=== PATIENT | female | born 1955 | race Caucasian/White ===

== ENCOUNTER 2016-11-22 16:30 | Emergency (ER) | payer OTHER ==
--- NOTE | 2016-11-22 17:05 | ER Document Report ---
ED Medical Screen (RME) - General Chief Complaint: Altered Mental Status Stated Complaint: ALTERED MENTAL STATUS Time Seen by Provider: 11/22/16 16:58 Mode of Arrival: Ambulatory Information source: Patient Notes: This is a 61-year-old female with a history of obstructive sleep apnea (CPAP), arthritis who presents to the emergency room with difficulty finding words and difficulty writing. The patient is right-handed. She states that she did have right-sided weakness and some numbness starting about 3 weeks ago. She states it started to get better and then she still had some symptoms and today it seemed a little worse so she came in for evaluation. The patient moved here from [place] so she does not have a local primary care doctor. She takes aspirin 81 mg and Naprosyn/esomeprazol for arthritis TRAVEL OUTSIDE OF THE [place] IN LAST 30 DAYS: No - Related Data Allergies/Adverse Reactions: No Known Allergies Allergy (Unverified 11/22/16 16:35) Past Medical History - Social History Chew tobacco use (# tins/day): No Frequency of alcohol use: None Drug Abuse: None Renal/ Medical History: Denies: Hx Peritoneal Dialysis Past Surgical History: Reports: Hx Orthopedic Surgery - right knee Physical Exam - Vital signs Vitals: Temp Pulse Resp BP Pulse Ox 97.9 F 85 16 139/83 H 96 11/22/16 16:36 11/22/16 16:36 11/22/16 16:36 11/22/16 16:36 11/22/16 16:36 Course - Vital Signs Vital signs: Temp Pulse Resp BP Pulse Ox 97.9 F 85 16 139/83 H 97 11/22/16 16:36 11/22/16 16:57 11/22/16 16:57 11/22/16 16:57 11/22/16 16:57
[2016-11-22 17:26] LABS: ABSOLUTE BASOPHILS # (AUTO) 0.1 10^3/uL (0.0-0.2); ABSOLUTE EOSINOPHILS # (AUTO) 0.3 10^3/uL (0.0-0.6); ABSOLUTE LYMPHOCYTES (AUTO) 2.3 10^3/uL (0.5-4.7); ABSOLUTE MONOCYTES (AUTO) 0.6 10^3/uL (0.1-1.4); ABSOLUTE NEUT (AUTO) 3.6 10^3/uL (1.7-8.2); BASOPHILS % (AUTO) 1.3 % (0-2); EOSINOPHILS % (AUTO) 4.1 % (0-6); HEMOGLOBIN 15.3 g/dL (12.0-15.5); HGB HCT DIFFERENCE 0.9; LYMPHOCYTES % (AUTO) 33.2 % (13-45); MEAN CORPUSCULAR VOLUME 91 fl (80-97); MONOCYTES % (AUTO) 8.2 % (3-13); RED BLOOD COUNT 4.94 10^6/uL (3.72-5.28); RED CELL DISTRIBUTION WIDTH 14.2 % (11.5-14.0); SEGMENTED NEUTROPHILS % (AUTO) 53.2 % (42-78); WHITE BLOOD COUNT 6.8 10^3/uL (4.0-10.5)
[2016-11-22 17:44] LABS: ALANINE AMINOTRANSFERASE 27 U/L (9-52); ALBUMIN 4.3 g/dL (3.5-5.0); ALKALINE PHOSPHATASE 72 U/L (38-126); ANION GAP 11 (5-19); ASPARTATE AMINO TRANSFERASE 22 U/L (14-36); BILIRUBIN,DIRECT 0.4 mg/dL (0.0-0.4); BILIRUBIN,TOTAL 0.6 mg/dL (0.2-1.3); BLOOD UREA NITROGEN 20 mg/dL (7-20); CALCIUM 9.7 mg/dL (8.4-10.2); CARBON DIOXIDE 27 mmol/L (22-30); CHLORIDE 105 mmol/L (98-107); CREATINE KINASE 149 U/L (30-135); CREATININE RESULT 1.01 mg/dL (0.52-1.25); GLUCOSE 89 mg/dL (75-110); POTASSIUM 4.1 mmol/L (3.6-5.0); SODIUM 143.2 mmol/L (137-145); TOTAL PROTEIN 7.1 g/dL (6.3-8.2)
--- NOTE | 2016-11-22 17:45 | RADIOLOGY REPORT (SQ) ---
EXAM DESCRIPTION: CHEST SINGLE VIEW COMPLETED DATE/TIME: 11/22/2016 5:29 pm REASON FOR STUDY: reilly COMPARISON: None. EXAM PARAMETERS: NUMBER OF VIEWS: One view. TECHNIQUE: Single frontal radiographic view of the chest acquired. RADIATION DOSE: NA LIMITATIONS: None. FINDINGS: LUNGS AND PLEURA: Mild subsegmental atelectasis. Mild chronic interstitial changes. The lungs are hyperexpanded. There is no acute infiltrate or pleural effusion. No mass is seen. MEDIASTINUM AND HILAR STRUCTURES: No masses. Contour normal. HEART AND VASCULAR STRUCTURES: Heart normal in size. Normal vasculature. BONES: No acute findings. HARDWARE: None in the chest. OTHER: No other significant finding. IMPRESSION: Chronic lung changes with no acute cardiopulmonary disease. TECHNICAL DOCUMENTATION: JOB ID: [id number]
--- NOTE | 2016-11-22 17:51 | RADIOLOGY REPORT (SQ) ---
EXAM DESCRIPTION: CT HEAD WITHOUT COMPLETED DATE/TIME: 11/22/2016 5:24 pm REASON FOR STUDY: rue numbness, difficulty finding words COMPARISON: None. TECHNIQUE: Axial images acquired through the brain without intravenous contrast. Images reviewed wi th bone, brain and subdural windows. Images stored on PACS. All CT scanners at this facility use dose modulation, iterative reconstruction, and/or weight based d osing when appropriate to reduce radiation dose to as low as reasonably achievable (ALARA). [facility]: Dose Right [facility]: CareDose [facility]: Dose Right [facility]: Teradose 4D [facility]: Smart Mostro RADIATION DOSE: Up-to-date CT equipment and radiation dose reduction techniques were employed. CTDIv ol: 64.6 mGy. DLP: 1034 mGy-cm. mGy. LIMITATIONS: None. FINDINGS: VENTRICLES: Normal size and contour. CEREBRUM: No masses. There is a 3 mm hyperdense focus in the centrum semiovale on the right on image 21. No midline shift. No evidence for acute infarction. Normal aguilar/white matter differentiation. No areas of low density in the white matter. CEREBELLUM: No masses. No hemorrhage. No alteration of density. No evidence for acute infarction. EXTRAAXIAL SPACES: No fluid collections. No masses. ORBITS AND GLOBE: No intra- or extraconal masses. Normal contour of globe without masses. CALVARIUM: No fracture. PARANASAL SINUSES: No fluid or mucosal thickening. SOFT TISSUES: No mass or hematoma. OTHER: No other significant finding. IMPRESSION: The study is normal except for 3 mm hyperdense focus on the right as described. This ma y represent a small calcification. A tiny hemorrhage cannot entirely be excluded. Consider observat ion and repeat CT in a few hours. Correlate clinically. COMMENT: Quality ID # [id number]: Final reports with documentation of one or more dose reduction techniques (e.g., Automated exposure control, adjustment of the mA and/or kV according to patient size, use of iterative reconstruction technique) TECHNICAL DOCUMENTATION: JOB ID: [id number]- All Rights Reserved
[2016-11-22 17:55] LABS: CREATINE KINASE MB 1.64 ng/mL (<4.55)
[2016-11-22 17:57] LABS: TROPONIN I < 0.012 ng/mL
--- NOTE | 2016-11-22 18:18 | ER Document Report ---
ED Neuro Symptoms/Deficit - General Mode of Arrival: Ambulatory Information source: Patient, Relative - spouse TRAVEL OUTSIDE OF THE [place] IN LAST 30 DAYS: No - HPI Patient complains to provider of: Weakness Onset: Other - Refer to HPI notes Altered sensation: LUE, RUE Associated symptoms: Other - Numbness, weakness Similar symptoms previously: No Recently seen / treated by doctor: No <RONNI DUNBAR - Last Filed: 11/22/16 19:53> <RONALD MALONE - Last Filed: 11/22/16 23:03> - General Chief Complaint: Altered Mental Status Stated Complaint: ALTERED MENTAL STATUS Time Seen by Provider: 11/22/16 16:58 - HPI Notes: Patient is a 61 year old female presenting to the emergency department for weakness and numbness to her right upper extremity 3 weeks. Patient states that this weakness and numbness is constant but changes in intensity. Patient states she has also had similar symptoms that are sporadic in her left upper extremity and are not present currently. Patient states that she has had some difficulty writing over the past 2 days. Patient states that yesterday she had difficulty grasping and using a pen and today the patient had difficulty with spelling her name and mixing up the letters of what she wanted to write. Patient states that she does not have good coordination and falls a lot. Patient denies any recent fall. Patient states that she also has had some shortness of breath over the past couple of months which is exacerbated with walking. Patient states this started after moving to this area from [place]. Patient is currently in the process of getting a new primary care physician and states this is what she was doing when she noticed the difficulties while writing. Patient is right-handed. Patient has a history of obstructive sleep apnea and uses a CPAP machine regularly. Patient does state that her CPAP machine was leaking last night so she did not use it. Patient also has a history of arthritis and has been told she has had a TIA episode and vertigo in the past. Patient has had previous MRI of the brain which she states showed small vessel brain disease and previous scattered minor infarcts. Patient is unsure if these were lunar infarcts. Patient possibly has hypercholesterolemia since she was suggested to start taking Lipitor but she did not want to take this medication. Patient takes 81 mg of aspirin daily and Naprosyn/ esomeprazole for her arthritis. Patient has no known drug allergies. (RONNI DUNBAR) - Related Data Allergies/Adverse Reactions: No Known Allergies Allergy (Unverified 11/22/16 16:35) Past Medical History - General Information source: Patient - Social History Smoking Status: Never Smoker Cigarette use (# per day): No Chew tobacco use (# tins/day): No Frequency of alcohol use: None Drug Abuse: None Family History: None Patient has suicidal ideation: No Patient has homicidal ideation: No Pulmonary Medical History: Reports: Hx Sleep Apnea - CPAP Neurological Medical History: Reports: Hx Cerebrovascular Accident - TIA Musculoskeltal Medical History: Reports Hx Arthritis Past Surgical History: Reports: Hx Orthopedic Surgery - right knee <RONNI DUNBAR - Last Filed: 11/22/16 19:53> Review of Systems - Review of Systems Constitutional: No symptoms reported EENT: No symptoms reported Cardiovascular: No symptoms reported Respiratory: No symptoms reported Gastrointestinal: No symptoms reported Genitourinary: No symptoms reported Female Genitourinary: No symptoms reported Musculoskeletal: No symptoms reported Skin: No symptoms reported Hematologic/Lymphatic: No symptoms reported Neurological/Psychological: See HPI, Weakness, Numbness -: Yes All other systems reviewed and negative <RONNI DUNBAR - Last Filed: 11/22/16 19:53> Physical Exam - Vital signs Interpretation: Normal <RONNI DUNBAR - Last Filed: 11/22/16 19:53> <RONALD MALONE - Last Filed: 11/22/16 23:03> - Vital signs Vitals: Temp Pulse Resp BP Pulse Ox 97.9 F 85 16 139/83 H 96 11/22/16 16:36 11/22/16 16:36 11/22/16 16:36 11/22/16 16:36 11/22/16 16:36 - Notes Notes: GENERAL: Alert, interacts well. Mild distress. HEAD: Normocephalic, atraumatic. EYES: Appear normal. Pupils equal, round, and reactive to light. ENT: Moist mucus membranes, tongue midline. NECK: Full range of motion. Supple. Trachea midline. No carotid bruits. LUNGS: Clear to auscultation bilaterally, no wheezes, rales, or rhonchi. No respiratory distress. HEART: Regular rate and rhythm. No murmurs, gallops, or rubs. ABDOMEN: Obese. Soft, non-tender. Non-distended. Normal bowel sounds. EXTREMITIES: Moves all 4 extremities spontaneously. Equal supply crib attendant strength. No motor deficits. No edema. NEUROLOGICAL: Alert and oriented x3. Normal speech. Speaks in long sentences. No focal neurological deficits. GSC 15. PSYCH: Normal affect, normal mood. SKIN: Warm, dry, normal turgor. No rashes or lesions noted. (RONNI DUNBAR) Course - Laboratory Result Diagrams: 11/22/16 17:15 11/22/16 17:15 <RONNI DUNBAR - Last Filed: 11/22/16 19:53> - Laboratory Result Diagrams: 11/22/16 17:15 11/22/16 17:15 - Diagnostic Test Radiology reviewed: Image reviewed, Reports reviewed - X-ray shows mild chronic interstitial changes, hyperinflated lungs, and mild subsegmental atelectasis. CT scan of the brain does not show acute infarct. MRI of the brain does show acute or subacute infarctions with multiple foci in the left frontal, temporal, and parietal lobes suggesting embolic origin - EKG Interpretation by Ct EKG shows normal: Sinus rhythm, [place], Intervals, QRS Complexes, ST-T Waves Rate: Normal - 63 Heart block present: 1st Degree When compared to previous EKG there are: Previous EKG unavailable - Consults Dr. Ramachandran Consulted provider: other <RONALD MALONE - Last Filed: 11/22/16 23:03> - Re-evaluation Re-evalutation: 11/22/16 21:32 The patient is not a TPA candidate due to the vagueness of her symptoms, and the fact that they started yesterday with motor dysfunction, and several hours ago with spelling problems. Further, the MRI of the brain shows the multiple infarcts to be acute or subacute. (RONALD MALONE) - Vital Signs Vital signs: Temp Pulse Resp BP Pulse Ox 97.9 F 85 16 146/96 H 99 11/22/16 16:36 11/22/16 17:53 11/22/16 21:01 11/22/16 21:01 11/22/16 21:01 - Laboratory Laboratory results interpreted by nv: 11/22/16 11/22/16 11/22/16 17:15 17:15 17:15 RDW 14.2 H Est GFR (Non-Af Amer) 56 L Creatine Kinase 149 H C-Reactive Protein 11.1 H Discharge <RONNI DUNBAR - Last Filed: 11/22/16 19:53> <RONALD MALONE - Last Filed: 11/22/16 23:03> - Discharge Clinical Impression: CVA (cerebral vascular accident) Qualifiers: CVA mechanism: embolism Precerebral and cerebral artery: carotid artery Laterality of affected vessel: left Qualified Code(s): 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 (RONALD MALONE) Scribe Documentation - Scribe Written by Scribe:: Stephanie Beard, 11/22/2016 19:24 acting as scribe for :: Indra <RONNI DUNBAR - Last Filed: 11/22/16 19:53>
--- NOTE | 2016-11-22 20:34 | EKG REPORT ---
SEVERITY:- ABNORMAL ECG - SINUS RHYTHM FIRST DEGREE AV BLOCK : Confirmed by: Miguel Ángel Pizano 22-Nov-2016 20:33:48
--- NOTE | 2016-11-22 20:54 | RADIOLOGY REPORT (SQ) ---
EXAM DESCRIPTION: MRI HEAD WITHOUT COMPLETED DATE/TIME: 11/22/2016 8:43 pm REASON FOR STUDY: RUE numbness x 3 wks, trouble spelling words today COMPARISON: None. TECHNIQUE: Multiplanar imaging includes non-contrasted T1, T2, FLAIR, and Diffusion with ADC map seq uences. Images stored on PACS. LIMITATIONS: None. FINDINGS: ANATOMY: No anomalies. Normal vascular flow voids. Pituitary fossa normal. CSF SPACES: Normal in size and contour. No hemorrhage. CEREBRUM: Scattered high-signal intensity lesions scattered throughout the white matter on FLAIR imag ing. Sulci and gyri normal in size and contour. No evidence of hemorrhage, mass or extraaxial fluid collection. POSTERIOR FOSSA: No signal alteration. No hemorrhage. No edema, masses or mass effect. Internal veronica tory canals, cerebello-pontine angles, mastoids normal. DIFFUSION: Positive for acute or sub-acute infarction with multiple foci of restricted diffusion in t he left frontal, temporal, and parietal lobes suggesting embolic origin. ORBITS: No masses. Globes normal. PARANASAL SINUSES: No fluid levels. Mucosa normal. OTHER: No other significant finding. IMPRESSION: Positive for acute or sub-acute infarction with multiple foci of restricted diffusion in the left frontal, temporal, and parietal lobes suggesting embolic origin. EVIDENCE OF ACUTE STROKE: Yes LEFT CAROTID TECHNICAL DOCUMENTATION: JOB ID: [id number]- All Rights Reserved
[2016-11-23 01:20] VITALS: BP 139/85
== END 2016-11-23 01:37 | disposition short-term general hospital (02) ==
LOC: ER 16:30
DX: I63.132 Cerebral infarction due to embolism of left carotid artery (principal); R41.82 Altered mental status, unspecified; R53.1 Weakness; R20.0 Anesthesia of skin
CPT/HCPCS: 36415; 70450; 70551; 71010; 80053; 82550; 82553; 84484; 85025; 85379; 85652; 86140; 87040; 93005; 93010; 99285

== ENCOUNTER 2019-05-25 13:14 | Emergency (ER) | payer MEDICARE, OTHER ==
--- NOTE | 2019-05-25 14:05 | ER Document Report ---
ED Medical Screen (RME) - General Stated Complaint: CHEST PAIN Time Seen by Provider: 05/25/19 13:46 Primary Care Provider: VICK VALLES DO [Primary Care Provider] - Follow up as needed Notes: Patient is a 64-year-old female who presents emergency department with a chief complaint of chest pain. Patient reports last night around 7 PM she did eat a hot dog. Reports a few hours later developing some midsternal chest pain. Patient initially thought this was her acid reflux but after drinking a bubbly drink she was able to burp with no relief. Patient reports she had a similar episode of midsternal chest pain about 10 days ago. She states that she has not felt right since and just feels off. Patient reports some shortness of breath and a 10 pound weight gain over the past month without changing her diet or exercise routine. Patient reports she does have a history of a stroke with some right upper extremity deficits in 2017. Patient reports she is also having some right arm pain that feels like a deep aching type sensation. Patient was sent here by her primary care physician for evaluation of chest pain. TRAVEL OUTSIDE OF THE [place] IN LAST 30 DAYS: No - Related Data Allergies/Adverse Reactions: No Known Allergies Allergy (Unverified 11/22/16 16:35) Past Medical History Pulmonary Medical History: Reports: Hx Sleep Apnea - CPAP Neurological Medical History: Reports: Hx Cerebrovascular Accident - TIA Renal/ Medical History: Denies: Hx Peritoneal Dialysis Musculoskeltal Medical History: Reports Hx Arthritis Past Surgical History: Reports: Hx Orthopedic Surgery - right knee Physical Exam - Vital signs Vitals: Temp Pulse Resp BP Pulse Ox 98.7 F 67 20 121/67 94 05/25/19 13:23 05/25/19 13:23 05/25/19 13:23 05/25/19 13:23 05/25/19 13:23 - Cardiovascular Rhythm: Regular Heart sounds: Normal auscultation, S1 appreciated, S2 appreciated Course - Re-evaluation Re-evalutation: 05/25/19 14:05 I did evaluate the patient and she was immediately brought back to room 14. Orders will have already been placed. I have greeted and performed a rapid initial assessment of this patient. A comprehensive ED assessment and evaluation of the patient, analysis of test results and completion of the medical decision making process will be conducted by additional ED providers. - Vital Signs Vital signs: Temp Pulse Resp BP Pulse Ox 98.7 F 67 20 121/67 94 05/25/19 13:23 05/25/19 13:23 05/25/19 13:23 05/25/19 13:23 05/25/19 13:23 Doctor's Discharge - Discharge Referrals: VICK VALLES, [Primary Care Provider] - Follow up as needed
[2019-05-25] MEDS ORDERED: ASPIRIN 81 MG TABLET, CHEWABLE PO ONE (14:06)
[2019-05-25 14:16] LABS: ABSOLUTE BASOPHILS # (AUTO) 0.1 10^3/uL (0.0-0.2); ABSOLUTE LYMPHOCYTES (AUTO) 1.6 10^3/uL (0.5-4.7); ABSOLUTE MONOCYTES (AUTO) 0.5 10^3/uL (0.1-1.4); ABSOLUTE NEUT (AUTO) 7.6 10^3/uL (1.7-8.2); BASOPHILS % (AUTO) 0.6 % (0-2); EOSINOPHILS % (AUTO) 0.4 % (0-6); HEMATOCRIT 43.9 % (36.0-47.0); HEMOGLOBIN 14.9 g/dL (12.0-15.5); LYMPHOCYTES % (AUTO) 16.2 % (13-45); MEAN CORPUSCULAR HEMOGLOBIN 30.6 pg (27.0-33.4); MEAN CORPUSCULAR VOLUME 90 fl (80-97); MONOCYTES % (AUTO) 5.4 % (3-13); PLATELET COUNT 236 10^3/uL (150-450); RED BLOOD COUNT 4.87 10^6/uL (3.72-5.28); RED CELL DISTRIBUTION WIDTH 13.5 % (11.5-14.0); SEGMENTED NEUTROPHILS % (AUTO) 77.4 % (42-78); TOTAL CELLS COUNTED % (AUTO) 100 %; WHITE BLOOD COUNT 9.8 10^3/uL (4.0-10.5)
--- NOTE | 2019-05-25 14:25 | ER Document Report ---
ED General - General Chief Complaint: Chest Pain Stated Complaint: CHEST PAIN Time Seen by Provider: 05/25/19 13:46 Primary Care Provider: VICK VALLES DO [Primary Care Provider] - Follow up as needed Notes: 64-year-old female with history of CVA with right-sided deficits presents for midsternal chest pain that started last night. Patient has some radiation down the right arm. States it feels like her arm is heavy. Patient had a hot dog last night and initially thought it was due to acid reflux and states it did not get better so went to her PCP who sent her here. Patient states she had an episode approximately 10 days ago with similar chest pain. Patient states associated dyspnea, nausea, and diaphoresis. Patient states it has slightly improved. Patient has a history of a CVA in 2017 which was secondary to a blockage in her carotid which required stent placement. Patient denies any history of cardiac stents or CABG. Patient states she had a nuclear stress test in 2018 which was negative. Patient's cisco administrator is Dr. Bonilla Slaughter from [facility]. Family history is positive for father with an NH in his 60s. Patient denies history of hypertension and diabetes. Pt has a history of being a former smoker. TRAVEL OUTSIDE OF THE [place] IN LAST 30 DAYS: No - Related Data Allergies/Adverse Reactions: No Known Allergies Allergy (Unverified 11/22/16 16:35) Past Medical History - Social History Smoking Status: Never Smoker Chew tobacco use (# tins/day): No Frequency of alcohol use: Occasional Drug Abuse: None Family History: None Patient has suicidal ideation: No Patient has homicidal ideation: No Pulmonary Medical History: Reports: Hx Sleep Apnea - CPAP Neurological Medical History: Reports: Hx Cerebrovascular Accident - TIA Renal/ Medical History: Denies: Hx Peritoneal Dialysis Musculoskeletal Medical History: Reports Hx Arthritis Past Surgical History: Reports: Hx Orthopedic Surgery - right knee Review of Systems - Review of Systems Notes: Constitutional: Negative for fever. HENT: Negative for sore throat. Eyes: Negative for visual changes. Cardiovascular: Positive for chest pain. Respiratory: Positive for shortness of breath. Gastrointestinal: Positive for nausea. Negative for abdominal pain, vomiting or diarrhea. Genitourinary: Negative for dysuria. Musculoskeletal: Negative for back pain. Skin: Negative for rash. Neurological: Negative for headaches, weakness or numbness. 10 point ROS negative except as marked above and in HPI. Physical Exam - Vital signs Vitals: Temp Pulse Resp BP Pulse Ox 98.7 F 67 20 121/67 94 05/25/19 13:23 05/25/19 13:23 05/25/19 13:23 05/25/19 13:23 05/25/19 13:23 - Notes Notes: GENERAL: Well-appearing, well-nourished and in no acute distress. HEAD: Atraumatic, normocephalic. EYES: Extraocular movements intact, sclera anicteric, conjunctiva are normal. NECK: Normal range of motion, supple without lymphadenopathy or JVD. No carotid bruits. LUNGS: Breath sounds clear to auscultation bilaterally and equal. No wheezes rales or rhonchi. HEART: Regular rate and rhythm without murmurs, rubs or gallops. EXTREMITIES: Normal range of motion, no pitting or edema. No clubbing or cyanosis. NEUROLOGICAL: Cranial nerves II through XII grossly intact. Normal speech, normal gait. PSYCH: Normal mood, normal affect. SKIN: Warm, Dry, normal turgor, no rashes or lesions noted. Course - Re-evaluation Re-evalutation: 05/25/19 14:32 No leukcytosis, no anemia. 05/25/19 15:07 Trop 8.360. NSTEMI. Discussed with attending, Dr. Lynn, who recommended SL NTG and heparin drip. Discussed plan of care with pt and pt's . Called [facility] to initiate transfer. 05/25/19 15:[address] Poncho Barboza, cisco administrator at [facility], to discuss pt. Accepted. Recommended nitro and morphine as needed for pain. 05/25/19 15:24 Discussed acceptance of transfer with pt. Pt voices understanding and agrees with plan of care. 05/25/19 17:09 Transport here to take pt to [facility]. Pt continues to remain stable for transport. - Vital Signs Vital signs: Temp Pulse Resp BP Pulse Ox 98.7 F 67 30 H 135/78 H 98 05/25/19 13:23 05/25/19 13:23 05/25/19 16:31 05/25/19 16:31 05/25/19 16:31 - Laboratory Result Diagrams: 05/25/19 14:00 05/25/19 14:00 Laboratory results interpreted by me: 05/25/19 05/25/19 14:00 14:00 Sodium 136.3 L Glucose 120 H AST 67 H Creatine Kinase 598 H CK-MB (CK-2) 84.20 H Discharge - Discharge Clinical Impression: NSTEMI (non-ST elevated myocardial infarction) Condition: Stable Disposition: [facility] Admitting Provider: Dr. Barboza Referrals: VICK VALLES DO [Primary Care Provider] - Follow up as needed
[2019-05-25 14:38] LABS: ALBUMIN 4.1 g/dL (3.5-5.0); ALKALINE PHOSPHATASE 61 U/L (38-126); ANION GAP 5 (5-19); ASPARTATE AMINO TRANSFERASE 67 U/L (14-36); BILIRUBIN,TOTAL 0.3 mg/dL (0.2-1.3); BLOOD UREA NITROGEN 16 mg/dL (7-20); CALCIUM 9.6 mg/dL (8.4-10.2); CARBON DIOXIDE 27 mmol/L (22-30); CHLORIDE 104 mmol/L (98-107); CREATINE KINASE 598 U/L (30-135); GLUCOSE 120 mg/dL (75-110); POTASSIUM 4.4 mmol/L (3.6-5.0)
[2019-05-25 14:50] LABS: CREATINE KINASE MB 84.2 ng/mL (<4.55)
[2019-05-25 14:52] LABS: TROPONIN I 8.36 ng/mL
[2019-05-25] MEDS ORDERED: NITROGLYCERIN 0.4 MG/TAB 25 TAB/BOTTLE SL PRN (14:57)
[2019-05-25] MEDS ORDERED: HEPARIN SOD (PORCINE) 1,000 UNIT/ML 10 ML VIAL IV ONE (14:58)
[2019-05-25] MEDS ORDERED: HEPARIN SODIUM,PORCINE/D5W 25,000 UNIT/250 ML RTUINJ IV PRN (14:58)
--- NOTE | 2019-05-25 15:04 | RADIOLOGY REPORT (SQ) ---
EXAM DESCRIPTION: CHEST SINGLE VIEW COMPLETED DATE/TIME: 05/25/2019 2:24 pm REASON FOR STUDY: bed 14 chest pain COMPARISON: 11/22/2016 EXAM PARAMETERS: NUMBER OF VIEWS: One view. TECHNIQUE: Single frontal radiographic view of the chest acquired. RADIATION DOSE: NA LIMITATIONS: None. FINDINGS: LUNGS AND PLEURA: No opacities, masses or pneumothorax. No pleural effusion. MEDIASTINUM AND HILAR STRUCTURES: No masses. Contour normal. HEART AND VASCULAR STRUCTURES: Cardiomegaly. No pulmonary edema. BONES: No acute findings. HARDWARE: None in the chest. OTHER: No other significant finding. IMPRESSION: Cardiomegaly without pulmonary edema. TECHNICAL DOCUMENTATION: JOB ID: [id number] 2010 [employer]- All Rights Reserved Reading location - IP/workstation name: [email or web address]
[2019-05-25] MEDS ORDERED: ACETAMINOPHEN 325 MG TABLET PO ONE (15:06)
[2019-05-25] MEDS ORDERED: NITROGLYCERIN 2% OINTMENT 1 GM PACKET TP ONE (15:08)
[2019-05-25 15:19] LABS: PROTHROMBIN TIME 13.2 SEC (11.4-15.4)
[2019-05-25 15:20] LABS: PARTIAL THROMBOPLASTIN TIME 27.3 SEC (23.5-35.8)
[2019-05-25 17:19] VITALS: BP 116/67
--- NOTE | 2019-05-25 17:44 | EKG REPORT ---
SEVERITY:- ABNORMAL ECG - SINUS RHYTHM FIRST DEGREE AV BLOCK BORDERLINE INFERIOR Q WAVES, AGE INDETERMINATE INFERIOR PA, CLINICAL CORRELATION NEEDED, SERIAL EKGS NEEDED TO ASSESS SIGNIFICANCE. : Confirmed by: Moise Bhagat MD 25-May-2019 17:43:57
[2019-05-25] MEDS ORDERED: HEPARIN SOD (PORCINE) 1,000 UNIT/ML 10 ML VIAL IV PRN (17:58)
== END 2019-05-25 17:27 | disposition short-term general hospital (02) ==
LOC: ER 13:14
DX: I21.4 Non-ST elevation (NSTEMI) myocardial infarction (principal); R07.9 Chest pain, unspecified; R06.02 Shortness of breath; R11.0 Nausea; Z86.73 Personal history of transient ischemic attack (TIA), and cerebral infarction without residual deficits
CPT/HCPCS: 93005; 99285; 36415; 82553; 82550; 85025; 85610; 85730; 80053; 84484; 71045; 93010; A9270 ×4; J1644 ×2